=== PATIENT | female | born 1955 | race African-American/Black ===

== ENCOUNTER 2022-04-18 08:40 | Emergency (ER) | payer OTHER ==
[2022-04-18 09:01] VITALS: BP 164/95; PULSE 101; RESP 18; TEMP 100.1; BMI 36.3
[2022-04-18] MEDS ORDERED: IBUPROFEN 400 MG TABLET (FP) PO ONE (09:04)
[2022-04-18] MEDS ORDERED: ACETAMINOPHEN 325 MG TABLET (FP) PO ONE (09:04)
[2022-04-18 09:47] LABS: THROAT:GRP A STREP NOT DETECTED (NOTDETECTED)
== END 2022-04-18 10:14 | disposition home or self-care (01) ==
LOC: JER 08:40
DX: U07.1 COVID-19 (principal)
CPT/HCPCS: 0241U-QW; 87651; 99283-25

== ENCOUNTER 2023-12-03 18:24 | Emergency (ER) | payer OTHER ==
[2023-12-03 18:31] VITALS: BP 107/68; PULSE 96; RESP 18; TEMP 98.4; BMI 30.7
== END 2023-12-03 21:05 | disposition left against medical advice (07) ==
LOC: JERFT 18:24
DX: Z53.21 Procedure and treatment not carried out due to patient leaving prior to being seen by health care provider (principal)
CPT/HCPCS: 0241U-QW; 71046-TC-FY; 93005; 93010; 99281-25